=== PATIENT | male | born 1975 | race African-American/Black ===

== ENCOUNTER 2016-10-19 18:57 | Emergency (ER) | payer OTHER ==
[~2016-10-19] VITALS: Ht 180.3 cm; Wt 106.9 kg
[2016-10-19 18:58] VITALS: BP 188/123
== END 2016-10-19 20:33 | disposition home or self-care (01) ==
LOC: ED 20:00
DX: Z76.0 Encounter for issue of repeat prescription (principal); I10 Essential (primary) hypertension
CPT/HCPCS: 99283